=== PATIENT | male | born 1945 | race Caucasian/White ===

== ENCOUNTER → 2016-10-13 | Outpatient (CLI) | payer MEDICARE, OTHER ==
[~2016-10-13] MED LIST: EQUATE ALLERGY PO; FENOFIBRATE160 MG PO; KLONOPIN TAB 00.5 MG PO; LIORESAL TAB 1010 MG PO; LORTAB 5-325 M1 EACH PO; NABUMETONE750 MG PO; NEURONTIN 400400 MG PO; PRAVACHOL40 MG PO
[2016-10-13 10:59] LABS: BUN/CREATININE RATIO 20 (0-10)
== END ==
LOC: LAB 08:38
PROVIDERS: Nurse Practitioner
DX: Z12.5 Encounter for screening for malignant neoplasm of prostate (principal); R79.89 Other specified abnormal findings of blood chemistry; E78.5 Hyperlipidemia, unspecified
CPT/HCPCS: 36415; 80053; 80061; 83036; G0103